=== PATIENT | male | born 1950 | race Caucasian/White ===

== ENCOUNTER 2017-09-29 18:14 | Emergency (ER) | payer MEDICARE, OTHER ==
[2017-09-29] MEDS ORDERED: Fluorescein Opthalmic Strip ONE (18:17)
[2017-09-29 18:48] LABS: #Basophils 0.1 thou/uL (0.0-0.2); #Eosinphils 0.2 thou/uL (0.0-0.7); #Lymphocytes 3.6 thou/uL (1.20-3.40); #Monocytes 0.8 thou/uL (0.11-0.59); %Basophils 0.7 % (0.0-1.0); %Eosinophils 2.6 % (0.0-10.0); %Lymphocytes 41.5 % (21.0-51.0); %Neutrophils 46.2 % (42.0-75.0); Hemoglobin 13.6 g/dL (14.0-18.0); Mean Corpuscular HGB CONC 35.4 g/dL (32.0-36.0); Mean Corpuscular Volume 87.6 fl (80.0-94.0); Mean Platelet Volume 6.1 fL (7.4-10.4); Platelet Count 219 thou/uL (130-400); RBC Distribution Width 12.5 % (11.5-14.5); White Blood Cell (WBC) Count 8.7 thou/uL (4.8-10.8)
[2017-09-29 19:07] LABS: ALT (SGPT) 15 U/L (8-55); AST (SGOT) 17 U/L (5-34); Albumin 4.4 g/dL (3.4-4.8); Alkaline Phosphatase 53 U/L (40-150); Anion Gap 14 mmol/L (10-20); BUN (Urea Nitrogen) 16 mg/dL (8.4-25.7); Bilirubin, Total 0.5 mg/dL (0.2-1.2); Calc. Creatinine Clearance 0 mL/min (70-130); Calcium 9.7 mg/dL (7.8-10.44); Carbon Dioxide 24 mmol/L (23-31); Chloride 107 mmol/L (98-107); Estimated GFR-MDRD 89; Globulin 3.2 g/dL (2.4-3.5); Glucose 99 mg/dL (80-115); Potassium 3.9 mmol/L (3.5-5.1); Protein, Total 7.6 g/dL (5.8-8.1); Sodium 141 mmol/L (136-145)
[2017-09-29] MEDS ORDERED: Acetaminophen/Codeine 30-300mg Tablet ONE (19:35)
[2017-09-29] MEDS ORDERED: Ibuprofen 200 MG TAB ONE (19:35)
[2017-09-29] MEDS ORDERED: Bacitracin Zinc 1 Packet ONE (19:36)
== END 2017-09-29 19:35 | disposition home or self-care (01) ==
LOC: BURERS 18:14
DX: T21.12XA Burn of first degree of abdominal wall, initial encounter (principal); T22.10XA Burn of first degree of shoulder and upper limb, except wrist and hand, unspecified site, initial encounter; T26.02XA Burn of left eyelid and periocular area, initial encounter; T26.01XA Burn of right eyelid and periocular area, initial encounter; X16.XXXA Contact with hot heating appliances, radiators and pipes, initial encounter; F17.210 Nicotine dependence, cigarettes, uncomplicated
CPT/HCPCS: 80053; 83605; 85025; 99284; G0390

== ENCOUNTER 2019-09-27 12:18 | Outpatient (CLI) | payer MEDICARE ==
--- NOTE | 2019-09-27 19:51 | RAD ---
CHEST: 09/27/19 PA and lateral views were provided. No prior films were available for comparison. The heart is normal in size and the lungs are clear. No infiltrate or effusion were seen. Regarding t he ribs, no fractures were appreciated. The mediastinum appears normal. There is some linear calcific ation along the top of the left hemidiaphragm. This could be calcified plaque from prior asbestos exp osure or it could be the remnant of a prior hemo/pyothorax. Minor degenerative changes are seen in th e mid thoracic spine. IMPRESSION: No acute thoracic finding. POS: HOME
== END 2019-09-27 12:19 | disposition home or self-care (01) ==
LOC: BURRAD 12:18
PROVIDERS: ATTEND Nurse Practitioner Family
DX: R07.81 Pleurodynia (principal); R06.00 Dyspnea, unspecified; S29.9XXA Unspecified injury of thorax, initial encounter
CPT/HCPCS: 71046